=== PATIENT | male | born 1995 | race African-American/Black ===

== ENCOUNTER 2016-05-29 03:51 | Emergency (ER) | payer MEDICAID ==
[~2016-05-29] VITALS: Ht 175.3 cm; Wt 54.0 kg
[2016-05-29] MEDS ORDERED: HYDROCODONE/ACETAMINOPHEN 10/325MG TABLET PO ONE (06:15)
[2016-05-29] MEDS ORDERED: IBUPROFEN 800MG TABLET PO ONE (06:15)
[2016-05-29] MEDS ORDERED: ONDANSETRON HCL 4MG/2ML VIAL IV ONE (08:00)
[2016-05-29] MEDS ORDERED: PROPOFOL 200MG/20ML VIAL IV ONE (08:00)
[2016-05-29] MEDS ORDERED: MORPHINE SULFATE 2 MG/ML CPJ (NOT FOR IM USE) IV ONE (09:30)
[2016-05-29 12:03] VITALS: BP 121/66
== END 2016-05-29 12:04 | disposition home or self-care (01) ==
LOC: ER 03:52
DX: S43.015A Anterior dislocation of left humerus, initial encounter (principal); V43.62XA Car passenger injured in collision with other type car in traffic accident, initial encounter; Y92.488 Other paved roadways as the place of occurrence of the external cause
CPT/HCPCS: 23650; 73030; 96374; 96375; 99152; 99285; J2270; J2405; Z7610; J2704; L3670